=== PATIENT | male | born 1975 | race Caucasian/White ===

== ENCOUNTER 2023-10-02 18:04 | Emergency (ER) | payer OTHER, SELFPAY ==
[2023-10-02 18:09] VITALS: BP 159/86; PULSE 91; RESP 18; TEMP 37.2; O2SAT 98; BMI 48.7
--- NOTE | 2023-10-02 19:54 | ED_ITS ---
HPI - General Adult General Date Seen: 10/02/23 Chief complaint: Extremity Pain/Injury, Lower Stated complaint: swollen calf Time Seen by Provider: 10/02/23 19:53 History of Present Illness HPI narrative: Very pleasant 48-year-old male who is generally healthy. He has no long-term medical diagnoses other than being overweight who is referred to the ER today for by the urgent care for evaluation of right calf redness and swelling. He has noted that since Thursday morning when he woke up he has had a couple of small round nodules of mildly edematous red skin on his right posterior calf on the calf and Achilles. They are really not painful but are mildly tender when touched. No other symptoms. No diffuse new swelling in his calf or leg. No left-sided swelling. No fever or chills. No body aches. No myalgias. No fever. No known injury. No known bug bites. He has no history of DVT or PE. No family history of coagulopathy. Related Data Home Medications Medication Instructions Recorded Confirmed No Known Home Medications 10/02/23 10/02/23 Allergies Allergy/AdvReac Type Severity Reaction Status Date / Time No Known Drug Allergies Allergy Verified 10/02/23 17:39 PFSH PFSH Family History Father Pulmonary embolism Paternal Grandfather Pulmonary embolism Uncle Pulmonary embolism Social History Smoking Status: Never smoker How often do you have a drink containing alcohol: never AUDIT-C Alcohol total score: 0 Non-prescribed substance use: denies use Exam Narrative: Exam Narrative: Constitutional: Appears well-developed and well-nourished. Robust and heavy set. Alert. Conversant. Non toxic. HENT: Head: Atraumatic. Nose: Nose normal. Mouth/Throat: Oral mucosa is clear and moist. no trismus. Pharynx normal. Tonsils symmetric. No tonsillar enlargement, erythema, or exudate. Eyes: Conjunctivae normal. EOM normal. Pupils equal, round, and reactive to light. No scleral icterus. Neck: Normal range of motion. Neck supple. No tracheal deviation present. Cardiovascular: Normal rate, regular rhythm. No gallop. No friction rub. No murmur heard. Symmetric radial artery pulses Pulmonary/Chest: Effort normal. No stridor. No respiratory distress. No wheezes. No rales. No rhonchi . No tenderness. Musculoskeletal: RUE: Normal range of motion. No tenderness. No deformity LUE: Normal range of motion. No tenderness. No deformity RLE: Normal range of motion. No edema. There is erythema on the posterior calf with 2 round slightly raised indurated erythematous nodules that her roughly 3 or 4 cm in diameter. No fluctuance. No central umbilication. No raised borders to suggest ringworm. There is mild erythema of both of his shins but it is symmetric and he says that coloration of his skin is actually chronic on his legs. No other signs of hyper pigmentation. Strong DP and PT pulses. Normal toe wiggling. LLE: Normal range of motion. No edema. No tenderness. No deformity Lymph: No ascending lymphangitis Neurological: Alert and oriented to person, place, and time. Normal strength. CN II-VII intact. No sensory deficit. GCS eye subscore is 4. GCS verbal subscore is 5. GCS motor subscore is 6. Normal coordination Skin: Skin is warm and dry. No rash noted. No pallor. Normal capillary refill. Psychiatric: Normal mood. Normal affect. Const: Vital Signs, click to edit/add: Vital Signs - 24 hr 10/02/23 18:09 Temperature 99 F Pulse Rate [Pulse Oximeter] 91 Respiratory Rate 18 Blood Pressure [Ri t Upper Arm] 159/86 H Pulse Oximetry 98 Oxygen Delivery Me thod Room Air Course Vital Signs Vital signs: Initial Vital Signs Temperature 99 F 10/02/23 18:09 Temperature Source Temporal Artery Scan 10/02/23 18:09 Pulse Rate 91 10/02/23 18:09 Respiratory Rate 18 10/02/23 18:09 Blood Pressure 159/86 H 10/02/23 18:09 Blood Pressure Mean 110 H 10/02/23 18:09 Blood Pressure Position Sitting 10/02/23 18:09 Pulse Oximetry 98 10/02/23 18:09 Oxygen Delivery Method Room Air 10/02/23 18:09 Vital Signs Temperature 99 F 10/02/23 18:09 Pulse Rate 91 10/02/23 18:09 Respiratory Rate 18 10/02/23 18:09 Blood Pressure 159/86 H 10/02/23 18:09 Pulse Oximetry 98 10/02/23 18:09 Oxygen Delivery Method Room Air 10/02/23 18:09 Temperature 99 F 10/02/23 18:09 Pulse Rate 91 10/02/23 18:09 Respiratory Rate 18 10/02/23 18:09 Blood Pressure 159/86 H 10/02/23 18:09 Pulse Oximetry 98 10/02/23 18:09 Oxygen Delivery Method Room Air 10/02/23 18:09 Medical Decision Making MDM Narrative Medical decision making narrative: Very pleasant 48-year-old male referred to the ER by urgent care for evaluation of a red nodular swelling on his right posterior calf. Differential here would include DVT, cellulitis, abscess, necrotizing infection, among others. Overall he is clinically well appearing, afebrile, nontoxic, hemodynamically stable. He has normal oxygen, no shortness of breath or chest pain or other symptoms of PE. With localized area of redness I think he is overall low risk for DVT. We decided to go ahead with ultrasound to make sure there was no other small thrombus. Ultrasound does confirm a segment of superficial thrombophlebitis in the greater saphenous vein which correlates to the patient's symptoms. Management for this would be supportive with rest, elevation, warm packs, nonsteroidals. Discussed superficial thrombophlebitis with the patient. Precautions for return to the ER with spreading redness or signs of developing infection or increasing edema or signs that the clot might be progressing or developing into a DVT. Questions answered and the patient is very pleased with his ultrasound results and feels eager for discharge home. Imaging Data US Venous RLE: Attestation: I have reviewed the pertinent imaging results. Radiologist's impression: IMPRESSION: 1. No deep vein thrombus within the right lower extremity. 2. Superficial thrombophlebitis within the right greater saphenous vein below the level of the knee. Discharge Plan Discharge Clinical Impression: Superficial thrombophlebitis Patient Disposition: Home, Self-Care Condition: Stable Instructions: Superficial Thrombophlebitis (ED) Additional Instructions: Good news, your ultrasound shows that you have a small clot in the superficial vein of your leg. This is not a deep vein thrombosis and does not carry any ris k for going to her lungs. This typically will dissolve on its own. Try to keep her foot elevated when possible, use warm packs to help improve blood flow to the area and you can treat this with nonsteroidal anti-inflammatories such as ibuprofen 600 mg every 6 hours as needed. If you have increasing redness or swelling, fever or chills, or if you developed the swelling diffusely in your calf, please come back to the ER right away to be recheck Prescriptions: No Action No Known Home Medications Follow Up/Referrals: Provider,Not a Local [Primary Care Provider] - Stand Alone Forms: [employer] Info Instructions
--- NOTE | 2023-10-02 20:05 | US_ITS ---
Patient: VIPUL MADRID Facility:?[facility] Patient ID:?[id number] Site Patient ID:?[id number]. Site :?[id number] Study:?US-Extremity Right -10/02/2023 9:22:21 PM Ordering Physician:LUISA Final Report: INDICATION: Right lower extremity swelling. TECHNIQUE: Right lower extremity Doppler venous ultrasound examination was performed. Grayscale and color Doppler images were obtained. COMPARISON: None. FINDINGS: RIGHT LOWER EXTREMITY: Common femoral vein: Fully compressible. No deep vein thrombus. Normal flow and response to augmentation on color Doppler imaging. Superficial femoral vein: Fully compressible. No deep vein thrombus. Normal flow on color Doppler imaging. Deep femoral vein: No deep vein thrombus Popliteal femoral vein: Fully compressible. No deep vein thrombus. Normal flow on color Doppler imaging. Lower calf: The visualized posterior tibial and peroneal veins are fully compressible. No deep vein thrombus. Normal flow and response to augmentation on color Doppler imaging. Superficial veins: There is a superficial thrombus within the greater saphenous vein below the level of the knee. Soft tissues: No popliteal fossa fluid collection identified. LEFT LOWER EXTREMITY: Common femoral vein: Fully compressible. No deep vein thrombus. Normal flow and response to augmentation on color Doppler imaging. IMPRESSION: 1. No deep vein thrombus within the right lower extremity. 2. Superficial thrombophlebitis within the right greater saphenous vein below the level of the knee. Dictated by Alberto Larson MD @ 10/02/2023 9:51:54 PM Signed by:?Alberto Larson MD @10/02/2023 9:51:54 PM (Electronic Signature)
== END 2023-10-02 22:13 | disposition home or self-care (01) ==
PROVIDERS: Emergency Provider Emergency Medicine
DX: I80.01 Phlebitis and thrombophlebitis of superficial vessels of right lower extremity (principal)
CPT/HCPCS: 93971; 99282; 99283

== ENCOUNTER 2024-06-04 13:04 | Observation (INO) | payer OTHER, SELFPAY ==
[2024-06-04] VITALS (30 sets, daily range): BP systolic 92–157; BP diastolic 65–116; PULSE 93–177; RESP 18–24; TEMP 36.9; O2SAT 76–99; BMI 48.1
--- NOTE | 2024-06-04 13:21 | ED_ITS ---
HPI - SOB/Dyspnea General Time Seen by Provider: 13:22 Date Seen: 06/04/24 Chief Complaint: Shortness of Breath/Dyspnea Stated Complaint: shortness of breathe, possible blood clot Time Seen by Provider: 06/04/24 13:21 Source: patient and old records reviewed Mode of arrival: ambulatory Limitations: no limitations History of Present Illness HPI Narrative: 49-year-old male who presents today with shortness of breath. Patient notes cold symptoms for the last week, including cough, nasal congestion, dyspnea with exertion. He notes a fever about a week ago when symptoms started but that is resolved. Denies chest pain, nausea, vomiting, diarrhea. Does feel like he has had some cramping in the left calf as well. Not currently taking anything for this, no history heart or lung disease. Related Data Home Medications ?Medication ?Instructions ?Recorded ?Confirmed multivitamin 1 tab PO QAM 06/04/24 06/04/24 Allergies Allergy/AdvReac Type Severity Reaction Status Date / Time No Known Drug Allergies Allergy Verified 06/04/24 13:55 PFSH PFSH Family History Father Pulmonary embolism Paternal Grandfather Pulmonary embolism Uncle Pulmonary embolism Social History Smoking Status: Never smoker How often do you have a drink containing alcohol: never AUDIT-C Alcohol total score: 0 Non-prescribed substance use: denies use Exam Narrative: Exam Narrative: General: Well-developed and well-nourished, no acute distress Head: Atraumatic and normocephalic Eyes: Pupils are equal reactive, extraocular motions intact, conjunctiva clear ENT: External nose and ears are normal, posterior pharynx without erythema or exudate Neck: No midline cervical tenderness, full spontaneous range of motion the neck, trachea midline, no adenopathy Heart: Regular rate and rhythm no murmurs or thrills Lungs: Clear to auscultation bilaterally without wheezes or crackles Abdomen: Soft, nontender, nondistended with active bowel sounds Musculoskeletal: No tenderness, deformity, or edema Neurologic: Awake, alert, and oriented x3, no gross focal neurologic deficits, cranial nerves intact as tested Psych: Mood and affect are appropriate Skin: No rashes Const: Vital Signs, click to edit/add: Vital Signs - 24 hr 06/04/24 13:12 06/04/24 14:41 06/04/24 15:01 Temperature 98.4 F Pulse Rate [Pulse Oximeter] 97 112 H 104 H Respiratory Rate 24 20 18 Blood Pressure [Ri ght Upper Arm] 157/92 H Pulse Oximetry 91 89 93 Oxygen Delivery Me thod Room Air Room Air Room Air 06/04/24 15:24 Temperature Pulse Rate [Pulse Oximeter] 107 H Respiratory Rate Blood Pressure [Ri ght Upper Arm] Pulse Oximetry 91 Oxygen Delivery Me thod Room Air Course Course ED Course: Patient seen examined, reviewed urgent care visit from earlier today which was for this same problem. At that time noted to be tachycardic with oxygen saturation 93%. Patient is not tachycardic on initial arrival to the emergency department. Patient with all about a week of cough, runny nose, and dyspnea on exertion. No chest pain, no fevers. On exam here, awake alert, no respiratory distress, trace crackles in the left lung field. Suspect possible viral process, however cannot exclude intrathoracic process such as pneumonia, heart failure, also possible of pulmonary embolism given family history in symptoms. Cannot PERC out, CT PE study will be performed due to high risk for pulmonary embolism also need to evaluate for other causes of cough. Patient is complaining of some calf cramping in the left leg, ultrasound ordered. Reevaluation(s) Time of Reevaluation #1: 14:26 Reevaluation #1: Labs and panel interpreted by me with slightly elevated troponin, patient has no chest pain in this likely represents strain, BNP elevated at 2580, in conjunction with slightly elevated troponin, concern that this could represent heart strep brain from pulmonary embolism. Basic panel is reassuring, CBC with mild leukocytosis. CT PE study and panel interpreted by me with poor bolus timing but no large central pulmonary embolism seen. Time of Reevaluation #2: 14:52 Reevaluation #2: Reviewed radiology interpretation CT scan with no large central pulmonary embolism no evidence of right heart strain, mild peribronchial wall thickening, there is a 1.2 cm semi solid ground-glass nodule which will need outpatient follow-up. Time of Reevaluation #3: 15:39 Reevaluation #3: Left lower extremity ultrasound is negative for acute findings, no DVT. Patient is stable for discharge. Remains low but tachycardic but otherwise vitally stable. Vital Signs Vital signs: Initial Vital Signs Temperature 98.4 F 06/04/24 13:12 Temperature Source Temporal Artery Scan 06/04/24 13:12 Pulse Rate 97 06/04/24 13:12 Respiratory Rate 24 06/04/24 13:12 Blood Pressure 157/92 H 06/04/24 13:12 Blood Pressure Mean 113 H 06/04/24 13:12 Pulse Oximetry 91 06/04/24 13:12 Oxygen Delivery Method Room Air 06/04/24 13:12 Vital Signs Temperature 98.4 F 06/04/24 13:12 Pulse Rate 97 06/04/24 13:12 Respiratory Rate 24 06/04/24 13:12 Blood Pressure 157/92 H 06/04/24 13:12 Pulse Oximetry 91 06/04/24 13:12 Oxygen Delivery Method Room Air 06/04/24 13:12 Temperature 98.4 F 06/04/24 13:12 Pulse Rate 107 H 06/04/24 15:24 Respiratory Rate 18 06/04/24 15:01 Blood Pressure 157/92 H 06/04/24 13:12 Pulse Oximetry 91 06/04/24 15:24 Oxygen Delivery Method Room Air 06/04/24 15:24 Medications Administered Medications: Discontinued Medications Generic Name Dose Route Start Last Admin Trade Name Darcy PRN Reason Stop Dose Admin Albuterol/Ipratropium 1 neb 06/04/24 14:54 06/04/24 15:02 Iprat-Albut 0.5-2.5 Mg/3 Ml Neb IH 06/04/24 14:55 1 neb ONCE ONE Administration Prednisone 60 mg 06/04/24 14:54 06/04/24 15:02 Prednisone 20 Mg Tablet PO 06/04/24 14:55 60 mg ONCE ONE Administration MDM - SOB/Dyspnea Lab Data Labs: Lab Results 06/04/24 06/04/24 Range/Units 13:40 13:42 WBC 12.66 H (4.50-11.00) K/uL RBC 5.01 (4.30-5.90) m/uL Hgb 14.9 (13.5-17.5) gm/dL Hct 44.5 (37.0-53.0) % MCV 89 (80-100) fL MCH 30 (26-34) pg MCHC 34 (32-36) gm/dL RDW Coeff of Andie 13.4 (11.5-15.5) % Plt Count 163 (140-440) K/uL Neut % (Auto) 78.5 H (42.0-72.0) % Lymph % (Auto) 11.1 L (20-44) % [place] % (Auto) 8.2 (0.0-11.0) % Eos % (Auto) 1.4 (0.0-7.0) % Baso % (Auto) 0.6 (0.0-3.0) % Neut # (Auto) 9.90 H (1.7-7.0) K/uL Lymph # (Auto) 1.40 (0.90-2.90) K/uL [place] # (Auto) 1.00 H (0.00-0.90) K/UL Eos # (Auto) 0.20 (0.00-0.50) K/uL Baso # (Auto) 0.10 (0.00-0.30) K/uL Abs Immat Gran (auto) 0.00 (0.00-0.30) K/uL Imm/Tot Granulo (auto) 0.2 % INR 1.00 (0.91-1.10) Sodium 139 (135-149) mmol/L Potassium 4.0 (3.6-5.1) mmol/L Chloride 109 (96-114) mmol/L Carbon Dioxide 24 (20-32) mmol/L Anion Gap 6 L (7-15) mEq/L BUN 17 (7-30) mg/dL Creatinine 1.1 (0.5-1.5) mg/dL Estimated Creat Clear 94.96 Estimated GFR 81 ml/min Glucose 142 H (60-115) mg/dL Calcium 9.7 (8.4-10.6) mg/dL Magnesium 2.3 (1.5-2.6) mg/dL NT-Pro-B Natriuret Pep 2580 pg/mL SARS-CoV-2 (PCR) Negative SARS-CoV-2 (Negative) Influenza Type A (PCR) Negative PCR FLU A (Negative) Influenza Type B (PCR) Negative PCR FLU B (Negative) RSV (PCR) Negative PCR RSV (Negative) POC Troponin I 0.10 H (0.01-0.04) ng/ml Discharge Plan Discharge Clinical Impression: Acute bronchitis, Upper respiratory infection, viral, Pulmonary nodule Patient Disposition: Home, Self-Care Condition: Stable Instructions: Acute Bronchitis (ED), Viral Syndrome (ED), Pulmonary Nodules (ED) Additional Instructions: Use inhaler intake steroid as prescribed Follow-up with primary care for further testing of the nodule seen on your CT scan. Activity Level: Activity as Tolerated Discharge Diet: Regular Prescriptions: No Action multivitamin Tablet 1 tab PO QAM Follow Up/Referrals: Provider,Not a Local [Primary Care Provider] - Stand Alone Forms: [employer] Info Instructions
--- NOTE | 2024-06-04 13:31 | CRLHL7_ITS ---
For Patients: As a result of the 21st Century Cures Act, medical imaging exams and procedure reports are released immediately into your electronic medical record. You may view this report before your referring provider. If you have questions, please contact your health care provider. INDICATION: Dyspnea. Chest pain. TECHNIQUE: Multiplanar CT pulmonary angiogram was performed after the administration of 95 mL of Isovue 370 intravenous contrast. COMPARISON: None. FINDINGS: Lower neck: The visualized thyroid is unremarkable. Cardiovascular: Contrast opacification of the pulmonary arterial tree is suboptimal limiting evaluation for pulmonary emboli. Heart size is normal. Thoracic aorta is normal in caliber. Enlarged main pulmonary artery measuring up to 4.7 cm. No significant atherosclerotic calcifications of the aortic arch. No significant coronary arterial calcifications. No large central pulmonary embolus. Mediastinum and lymph nodes: Unremarkable. No pathologic mediastinal or hilar lymphadenopathy by size criteria. Lungs: No focal consolidation. Subsolid ground-glass nodule measuring 1.2 cm with a 1.1 cm solid component (5:35). Linear bandlike opacification of the lung bases bilaterally, likely subsegmental atelectasis and/or scarring. Airways: Trachea remains patent and midline. Mild diffuse peribronchial wall thickening. Pleura: No pleural effusions or pneumothorax Chest wall: Unremarkable. Prominent axillary lymph nodes that do not meet size criteria for lymphadenopathy. Bones: No acute osseous abnormalities. Mild degenerative changes of the thoracic spine. No suspicious lytic or blastic lesions. Upper abdomen: No acute findings in the visualized upper abdomen. No reflux of contrast material into the IVC. IMPRESSION: 1. Suboptimal opacification of the pulmonary arterial tree limits evaluation for pulmonary emboli. No large central pulmonary embolus or CT evidence of right heart strain. 2. 1.2 cm subsolid ground-glass nodule with 1.1 cm solid component, raising concern for an underlying neoplasm/adenocarcinoma spectrum type lesion. No pathologic lymphadenopathy. Further evaluation should be obtained with PET-CT or histologic tissue analysis. Please note that all CT scans at this facility use dose modulation, iterative reconstruction, and/or weight-based dosing when appropriate to reduce radiation dose to as low as reasonably achievable. Dictated by Alberto Larson MD @ 06/04/2024 2:47:28 PM (Electronically Signed)
--- NOTE | 2024-06-04 13:31 | CRLHL7_ITS ---
For Patients: As a result of the Century Cures Act, medical imaging exams and procedure reports are released immediately into your electronic medical record. You may view this report before your referring provider. If you have questions, please contact your health care provider. INDICATION: Left leg pain and swelling. Shortness of breath. TECHNIQUE: Ultrasound venous duplex lower left extremity. Compression venous exam was performed using ricketts-scale, color Doppler, and spectral Doppler imaging. COMPARISON: None. FINDINGS: Left lower extremity: Common femoral vein: Patent and compressible. Greater saphenous vein: Patent. Deep femoral vein: Patent. Femoral vein: Patent and compressible. Popliteal vein: Patent and compressible. Posterior tibial vein: Patent and compressible. Peroneal vein: Patent and compressible. Contralateral right common femoral vein: Patent and compressible. IMPRESSION: No evidence of acute deep venous thrombosis in the left lower extremity. Dictated by Lorraine Spears MD @ 06/04/2024 3:38:47 PM (Electronically Signed)
[2024-06-04 13:50] LABS: Basophils Percent Auto 0.6 % (0.0-3.0); Eosinophils Percent Auto 1.4 % (0.0-7.0); Hematocrit 44.5 % (37.0-53.0); Hemoglobin* 14.9 gm/dL (13.5-17.5); Immature Granulocytes Pct Auto 0.2 %; Lymphocytes Percent Auto 11.1 % (20-44); Mean Corpuscular HGB Conc 34 gm/dL (32-36); Mean Corpuscular Hemoglobin 30 pg (26-34); Mean Corpuscular Volume 89 fL (80-100); Monocytes Percent Auto 8.2 % (0.0-11.0); Neutrophils Percent Auto 78.5 % (42.0-72.0); Platelet Count* 163 K/uL (140-440); RDW Coefficient of Variation % 13.4 % (11.5-15.5); Red Blood Count 5.01 m/uL (4.30-5.90); White Blood Count* 12.66 K/uL (4.50-11.00)
[2024-06-04 14:05] LABS: Chloride* 109 mmol/L (96-114); Sodium* 139 mmol/L (135-149)
[2024-06-04 14:08] LABS: Anion Gap 6 mEq/L (7-15); Blood Urea Nitrogen* 17 mg/dL (7-30); Calcium* 9.7 mg/dL (8.4-10.6); Carbon Dioxide* 24 mmol/L (20-32); Creatinine* 1.1 mg/dL (0.5-1.5); Est. Creatinine Clearance* 94.96; Estimated Glomerular Filt Rate 81 ml/min; Glucose* 142 mg/dL (60-115)
[2024-06-04 14:09] LABS: Magnesium* 2.3 mg/dL (1.5-2.6)
[2024-06-04 14:19] LABS: NT Pro B Type NatriureticPept* 2580 pg/mL; Slide Review Reflex No
[2024-06-04 14:37] LABS: PCR FLU A Negative PCR FLU A (Negative); PCR FLU B Negative PCR FLU B (Negative); PCR RSV Negative PCR RSV (Negative); SARS PCR* Negative SARS-CoV-2 (Negative)
[2024-06-04] MEDS: predniSONE 20 MG TABLET 60 MG PO (15:02)
[2024-06-04] MEDS: IPRAT-ALBUT 0.5-2.5 MG/3 ML NEB 1 NEB IH (15:02)
[2024-06-04 15:27] LABS: Prothrombin Time 13.8 Seconds
--- NOTE | 2024-06-04 16:20 | ED_ITS ---
HPI - General Adult General Chief complaint: Shortness of Breath/Dyspnea Stated complaint: shortness of breathe, possible blood clot Time Seen by Provider: 06/04/24 13:21 Source: patient and old records reviewed Mode of arrival: ambulatory Limitations: no limitations History of Present Illness HPI narrative: This patient was discharged from a visit here at the emergency department and on his way out he grew short of breath and became lightheaded and actually had loss of consciousness so he was brought back in here. He denies having any chest pain. He states that was all about becoming short of breath which she has had some episodes like this recently. He was cared for by the physician that finished his shift and I did review those notes. He did have CT imaging of his chest for pulmonary embolism trial. This returned negative. He also had ultrasound of his lower extremities with negative results. His troponin did return at 0.1 but the patient all along has been denying any chest pain. This was thought to be some demand ischemia. He does not have significant pedal edema. He is very obese with a BMI of 48 and weighing 175 kg. Related Data Home Medications ?Medication ?Instructions ?Recorded ?Confirmed multivitamin 1 tab PO QAM 06/04/24 06/04/24 Allergies Allergy/AdvReac Type Severity Reaction Status Date / Time No Known Drug Allergies Allergy Verified 06/04/24 13:55 Review of Systems Status of ROS: Reports: 10 or more systems reviewed and unremarkable except as noted in History and below Narrative: Constitutional: No fevers, no weight gain or loss. Eyes: No discharge. No vision changes. HENT: No congestion, no sore throat, no ear pain. Cardiovascular: No chest pain, no palpitations. Respiratory: Shortness of breath with an episode of syncope spurred on by shor tness of breath. Gastrointestinal: No abdominal pain, no vomiting, no diarrhea. Genitourinary: No dysuria, no hematuria. Musculoskeletal: Normal range of motion. Skin: No rashes, no pruritis. Neurological: No dizziness, weakness, sensory change, speech change. Endo/Heme/Allergies: No bruising or bleeding. No polydipsia. Pysch: no suicidality, no anxiety, no insomnia. All other systems reviewed and are negative. [facility] Family History Father Pulmonary embolism Paternal Grandfather Pulmonary embolism Uncle Pulmonary embolism Social History Smoking Status: Never smoker How often do you have a drink containing alcohol: never AUDIT-C Alcohol total score: 0 Non-prescribed substance use: denies use Exam Narrative: Exam Narrative: Constitutional: Well-developed, well-nourished. Diaphoretic. HEENT: Normocephalic, atraumatic. Neck: Normal range of motion. Nontender. Supple. Heart: Regular. No murmurs. Tachycardia. Intact distal pulses. Lungs: Clear to auscultation. No chest discomfort. No wheezes, rhonchi, or rales. Abdomen: Normal bowel sounds. Nontender. No rebound tenderness. Genitalia: Deferred. Back: No midline tenderness. Normal range of motion. Extremities: Normal range of motion. No injury. Skin: Intact. No rash. Warm. No erythema or pallor. Neurologic: No altered sensation. No weakness. Alert and oriented. Psychiatric: No suicidality. No anxiety or depression. No insomnia. Nursing notes and vitals signs are reviewed. Const: Vital Signs, click to edit/add: Vital Signs - 24 hr 06/04/24 13:12 06/04/24 14:41 06/04/24 15:01 Temperature 98.4 F Pulse Rate [Pulse Oximeter] 97 112 H 104 H Respiratory Rate 24 20 18 Blood Pressure [Ri ght Upper Arm] 157/92 H Pulse Oximetry 91 89 93 Oxygen Delivery Me thod Room Air Room Air Room Air Oxygen Flow Rate 06/04/24 15:24 06/04/24 16:40 Temperature Pulse Rate [Pulse Oximeter] 107 H Respiratory Rate Blood Pressure [Ri ght Upper Arm] Pulse Oximetry 91 Oxygen Delivery Me thod Room Air OxyMask Oxygen Flow Rate 6 Course Vital Signs Vital signs: Initial Vital Signs Respiratory Depth Normal 06/04/24 13:11 Vital Signs Temperature 98.4 F 06/04/24 13:12 Pulse Rate 97 06/04/24 13:12 Respiratory Rate 24 06/04/24 13:12 Blood Pressure 157/92 H 06/04/24 13:12 Pulse Oximetry 91 06/04/24 13:12 Oxygen Delivery Method Room Air 06/04/24 13:12 Temperature 98.4 F 06/04/24 13:12 Pulse Rate 107 H 06/04/24 15:24 Respiratory Rate 18 06/04/24 15:01 Blood Pressure 157/92 H 06/04/24 13:12 Pulse Oximetry 91 06/04/24 15:24 Oxygen Delivery Method OxyMask 06/04/24 16:40 Oxygen Flow Rate 6 06/04/24 16:40 Medications Administered Medications: Discontinued Medications Generic Name Dose Route Start Last Admin Trade Name Darcy PRN Reason Stop Dose Admin Albuterol/Ipratropium 1 neb 06/04/24 14:54 06/04/24 15:02 Iprat-Albut 0.5-2.5 Mg/3 Ml Neb IH 06/04/24 14:55 1 neb ONCE ONE Administration Prednisone 60 mg 06/04/24 14:54 06/04/24 15:02 Prednisone 20 Mg Tablet PO 06/04/24 14:55 60 mg ONCE ONE Administration Medical Decision Making MDM Narrative Medical decision making narrative: This patient returns after a syncopal event upon discharge due to shortness of breath. He feels back to normal when laying still but is having tachycardia at rest. His heart rate is staying around 115 beats per minute. He is getting sufficient oximetry numbers. A repeat troponin is obtained and does not show a significant difference at 0.12. I did speak with the hospitalist on-call, Dr. Gonsalez, who agrees to his admission and will come to meet with him and make arrangements. A venous blood gas is obtained also and returns with normal findings. Lab Data Labs: Lab Results 06/04/24 06/04/24 06/04/24 Range/Units 13:40 13:42 16:30 WBC 12.66 H (4.50-11.00) K/uL RBC 5.01 (4.30-5.90) m/uL Hgb 14.9 (13.5-17.5) gm/dL Hct 44.5 (37.0-53.0) % MCV 89 (80-100) fL MCH 30 (26-34) pg MCHC 34 (32-36) gm/dL RDW Coeff of Andie 13.4 (11.5-15.5) % Plt Count 163 (140-440) K/uL Neut % (Auto) 78.5 H (42.0-72.0) % Lymph % (Auto) 11.1 L (20-44) % [place] % (Auto) 8.2 (0.0-11.0) % Eos % (Auto) 1.4 (0.0-7.0) % Baso % (Auto) 0.6 (0.0-3.0) % Neut # (Auto) 9.90 H (1.7-7.0) K/uL Lymph # (Auto) 1.40 (0.90-2.90) K/uL [place] # (Auto) 1.00 H (0.00-0.90) K/UL Eos # (Auto) 0.20 (0.00-0.50) K/uL Baso # (Auto) 0.10 (0.00-0.30) K/uL Abs Immat Gran (auto) 0.00 (0.00-0.30) K/uL Imm/Tot Granulo (auto) 0.2 % INR 1.00 (0.91-1.10) VBG pH (7.32-7.43) VBG pCO2 (40-50) mmHG VBG pO2 (25-47) mmHG VBG HCO3 (21-28) mmol/L Sodium 139 (135-149) mmol/L Potassium 4.0 (3.6-5.1) mmol/L Chloride 109 (96-114) mmol/L Carbon Dioxide 24 (20-32) mmol/L Anion Gap 6 L (7-15) mEq/L BUN 17 (7-30) mg/dL Creatinine 1.1 (0.5-1.5) mg/dL Estimated Creat Clear 94.96 Estimated GFR 81 ml/min Glucose 142 H (60-115) mg/dL Calcium 9.7 (8.4-10.6) mg/dL Magnesium 2.3 (1.5-2.6) mg/dL NT-Pro-B Natriuret Pep 2580 pg/mL SARS-CoV-2 (PCR) Negative SARS-CoV-2 (Negative) Influenza Type A (PCR) Negative PCR FLU A (Negative) Influenza Type B (PCR) Negative PCR FLU B (Negative) RSV (PCR) Negative PCR RSV (Negative) POC Troponin I 0.10 H 0.12 H (0.01-0.04) ng/ml 06/04/24 Range/Units 17:27 WBC (4.50-11.00) K/uL RBC (4.30-5.90) m/uL Hgb (13.5-17.5) gm/dL Hct (37.0-53.0) % MCV (80-100) fL MCH (26-34) pg MCHC (32-36) gm/dL RDW Coeff of Andie (11.5-15.5) % Plt Count (140-440) K/uL Neut % (Auto) (42.0-72.0) % Lymph % (Auto) (20-44) % [place] % (Auto) (0.0-11.0) % Eos % (Auto) (0.0-7.0) % Baso % (Auto) (0.0-3.0) % Neut # (Auto) (1.7-7.0) K/uL Lymph # (Auto) (0.90-2.90) K/uL [place] # (Auto) (0.00-0.90) K/UL Eos # (Auto) (0.00-0.50) K/uL Baso # (Auto) (0.00-0.30) K/uL Abs Immat Gran (auto) (0.00-0.30) K/uL Imm/Tot Granulo (auto) % INR (0.91-1.10) VBG pH 7.373 (7.32-7.43) VBG pCO2 41 (40-50) mmHG VBG pO2 < 30.1 (25-47) mmHG VBG HCO3 24 (21-28) mmol/L Sodium (135-149) mmol/L Potassium (3.6-5.1) mmol/L Chloride (96-114) mmol/L Carbon Dioxide (20-32) mmol/L Anion Gap (7-15) mEq/L BUN (7-30) mg/dL Creatinine (0.5-1.5) mg/dL Estimated Creat Clear Estimated GFR ml/min Glucose (60-115) mg/dL Calcium (8.4-10.6) mg/dL Magnesium (1.5-2.6) mg/dL NT-Pro-B Natriuret Pep pg/mL SARS-CoV-2 (PCR) (Negative) Influenza Type A (PCR) (Negative) Influenza Type B (PCR) (Negative) RSV (PCR) (Negative) POC Troponin I (0.01-0.04) ng/ml ECG Data Attestation: I personally reviewed and interpreted this ECG as follows: Interpretation: Sinus tachycardia. Rate is 112 beats per minute. T-wave inversions in the anterior lateral and inferior leads. No ST depression or elevation. Discharge Plan Discharge Clinical Impression: Acute bronchitis, Upper respiratory infection, viral, Pulmonary nodule Patient Disposition: Admitted As Inpatient Condition: Stable Instructions: Acute Bronchitis (ED), Viral Syndrome (ED), Pulmonary Nodules (ED) Additional Instructions: Use inhaler intake steroid as prescribed Follow-up with primary care for further testing of the nodule seen on your CT scan. Activity Level: Activity as Tolerated Discharge Diet: Regular Prescriptions: No Action multivitamin Tablet 1 tab PO QAM Follow Up/Referrals: Provider,Not a Local [Primary Care Provider] - Stand Alone Forms: [facility] Info Instructions
--- NOTE | 2024-06-04 16:30 | ED.NURSE ---
Pt was discharged from ER, did ambulate to hallway and then sat down feeling SOB. Partner Marketing Manager heard Pt in lobby and found Pt diaphoretic, pale and unresponsive in chair. Pt was able to wake and move to wheel chair. NRB started and Pt moved back to ER using account that had not yet been completed. Pt had earlier self ambulated to imaging department without episode.
[2024-06-04 16:49] LABS: Troponin, Point-of-Care* 0.12 ng/ml (0.01-0.04)
[2024-06-04 17:28] LABS: HCO3 VBG 24 mmol/L (21-28); PCO2 VBG 41 mmHG (40-50); PO2 VBG < 30.1 mmHG (25-47); pH VBG 7.373 (7.32-7.43)
--- NOTE | 2024-06-04 18:45 | ED.NURSE ---
Pt was in process of filling [employer] Rx when Pt was brought back into ER. [employer] was contacted and did reverse and cancel the transaction. Med Surg notified that Pt will need new Rx at time of discharge.
[2024-06-04] MEDS: EPINEPHrine 0.1 MG/ML SYRINGE 1 MG IVP ×5 (18:57→20:11)
--- NOTE | 2024-06-04 19:22 | P.DN_ITS ---
Pronouncement Note Date and Time of Date of : 06/04/24 Time of : 19:12 PCOD Preliminary cause of : Cardiac arrest Summary Additional details: 49 year old man presented with complaint of shortness of breath. 9 day history of increased dyspnea with exertion. 5 days ago had a severe coughing paroxysm with transient near syncope and has had worsening dyspnea since. Denies edema. Does not obtain medical care routinely. Acknowledges long standing snoring with sleeping, apneic episodes worrisome for obstructive sleep apnea. He has never had this assessed. Strong family history of VTE, with father, paternal grandfather, and paternal uncle all having of complications from pulmonary embolism. Evaluated in the [place] urgent care today, then referred to the [facility] ED for further assessment and management. Initial assessment in the ED was rather extensive and no specific cause of his symptoms was specifically determined. Based upon his positive response to DuoNeb, it was presumed that he possibly was suffering from a URI with reactive airways. Upon discharge from the ED he had a near syncope episode followed by a syncopal episode before even walking out of the hospital. He was brought back to the ED. A determination was made to admit the patient to the hospital for additional observation and continue to assess and treat as warranted. When he arrived to the medical surgical floor he had another syncopal episode after walking back from the bathroom. Shortly thereafter while sitting in his hospital bed he became buck in color and unresponsive. We called a CODE-BLUE and initiated CPR immediately. MedSurg and ED staff were present to institute ACLS. He initially had PEA. In a short period of time he was in an agonal rhythm. CPR compressions could be easily felt in the right femoral artery. When CPR was stopped, to change compressors, no pulse could be felt. Additionally, bedside POC ultrasound demonstrated no cardiac activity when compression stopped. I spoke with his , Sena, during and after the CODE. After 20 minutes of CPR without any return of electrical or mechanical function, the CODE was stopped and the patient was pronounced at 1912. Additional Data Confirmation of : no pulse, no respirations, no heart sounds and pupils fixed and dilated Family: contacted Additional persons at bedside: other (physicians (myself included), nurses, respiratory therapist) Attending/PCP notified?: Yes Attending physician: Maxim Gonsalez MD Date Seen: 06/04/24 Was code activated?: Yes Autopsy requested?: No mail distribution scheme examiner notified?: Yes Organ bank notified?: Yes Advance directives: No
--- NOTE | 2024-06-04 19:28 | PC.NURSE ---
Nursing Note: 183 Pt arrived to unit on w/c with oxymask running at 4L. Pt tachpenic and clammy. Stated he could not stand for a weight so bed scale prepped. Pt hastily trying to get up to use toilet. Extension tubing attached and pt walked SB to bathroom to void. While washing hands, pt stopped and walked towards bed saying I need the fucking bed, im sorry. Pt sat down and residential mortgage underwriter noted increase clamminess and change in color. Pt eyes rolled back and pt began leaning forward. Public Health Internship supported pt and helped lower to bed laying supine. Public Health Internship called out for assistance and while staff arriving to room, pt became alert but could not recall what just happened. Assisted to sitting at edge of bed, VS monitoring put in place for Q5min. While attempting to head field hockey coach pt with effective breathing, pt started passing out again. Public Health Internship supported pt upright until pt became alert again shortly after. Assisted pt semi fowlers into bed. BP low at 98/79, HR 142, spO2 at 88%. Supplemental O2 increased to 9L via oxy mask. . Public Health Internship attempted to lower head of bed but pt unable to tolerate. Became panicked and demanded to sit up. Head of bed slighting elevated until comfortable. While trying to get cardiac monitoring in place pt became increasingly panicked and unable to catch breath. Once EKG printed, put pt in high fowlers and assisted in leaning forward to tripod. and residential mortgage underwriter coaching pt to breathe through the nose and out the mouth but pt unable to do so. Breathing seemed to reach a point that pt was able to calmly take a breath but when residential mortgage underwriter observed pt, eyes seemed to become fixed, staring off. Pt became unresponsive to voice and then tensed up, color of lips became pale and no carotid pulse felt. Code called, bed transitioned to CPR mode and CPR started by residential mortgage underwriter. During code, residential mortgage underwriter performed three rounds of CPR alternating with staff. IV to R AC started by residential mortgage underwriter.
--- NOTE | 2024-06-04 19:44 | RESP.RT ---
Patient seen in ED as Patient SATs dropped with any activity, but quickly recovered with rest and 8L Oxymask. Patient was transferred to [facility] CCU[facility]. Patient got up to use the bathroom and quickly desaturated and became very diaphoretic. Patient placed on 15L Oxymask. SATs increased to 95%, but RR increased to 40 and patient had very high anxiety. While BiPAP was getting set up, patient lost consciousness and seized before going into PEA. CPR was started and patient was able to be ventilated with BVM. CPR was continued for 20min with no ability to regain a HR.
--- NOTE | 2024-06-04 20:00 | P.IMHP_ITS ---
Hospitalist- H&P: HPI History of Present Illness Date Seen: 06/04/24 Chief complaint: shortness of breathe, possible blood clot Narrative: Wilmar Lyn is a 49 year old man assist at the [facility] today for dyspnea and cough with exertion. He was referred to the emergency [facility] after initial assessment in Urgent Care and then presented to the [facility] Emergency Department. He tells me he just came back from a deer hunting excursion on 05/22/2024. He did well during that time. He had no dyspnea with exertion. Return home and was doing well until about 9 days ago when he noticed a sense of increased dyspnea with exertion. He brushed that off. Five days ago, on a Thursday, he states he had a coughing paroxysm and felt like he could not catch his breath and was near syncopal. After that coughing paroxysm resolved, he has had increased dyspnea with exertion since. Throughout this he denies fevers, rigors, diaphoresis. Has had a nonproductive cough particularly with exertion. [place] like he had phlegm in his throat which he could not clear. He wondered if maybe he had chest cold as he called it. Denies dyspnea at rest. The dyspnea with exertion was becoming so problematic that he decided to come in for assessment today. Review of Systems Status of ROS: Reports: 10 or more systems reviewed and unremarkable except as noted in History and below Narrative: He tells me he does not obtain routine medical care at all. He does not have regular physician whom he sees. Does not have a primary care physician. In October of 2023 he had a superficial venous thrombus in his right popliteal fossa treated with nonsteroidal anti-inflammatory medications and resolved. This was found when he felt these uncomfortable nodules in his right popliteal fossa and an ultrasound demonstrated the superficial venous thrombus. There was no deep venous thrombus. Longstanding snoring when he sleeps and apneic episodes. He has never sought medical attention for this. Denies any recent chest, neck, shoulder, arm heaviness, tightness, pressure, or pain. Up until today he has had no syncopal episodes. Denies nausea or v omiting. Denies palpitations. Again denies fevers, rigors, diaphoresis. Denies edema. Longstanding varicose veins bilateral lower extremities. Does not take any measures to address this. Denies asthma or reactive airways in the past. [facility] Medical History Morbid obesity ?E66.01 - Morbid (severe) obesity due to excess calories (ICD-10) Acute superficial venous thrombosis of right lower extremity ?I82.811 - Embolism and thrombosis of superficial veins of right lower extremity (ICD-10) Family History Father Pulmonary embolism Paternal Grandfather Pulmonary embolism Uncle Pulmonary embolism Social History Smoking Status: Never smoker How often do you have a drink containing alcohol: never AUDIT-C Alcohol total score: 0 Non-prescribed substance use: denies use Meds Home Medications and Allergies Home Medications ?Medication ?Instructions ?Recorded ?Confirmed ?Type multivitamin 1 tab PO QAM 06/04/24 06/04/24 History Allergies Allergy/AdvReac Type Severity Reaction Status Date / Time No Known Drug Allergies Allergy Verified 06/04/24 13:55 Exam Narrative: Exam Narrative: I initially evaluated the patient in the emergency department. Subsequently I examined the patient in his hospital room after he arrived on the medical surgical nurses station. When I 1st assessed him he was sitting on the edge of his bed appeared comfortable and in no acute distress. Vision and hearing are adequate. Talkative and cooperative. Friendly. Alert, oriented x4. Morbidly obese. External auditory canals are clear. Midline nasal septum. Dentition in fair repair. Mallampati class 4 airway. No icterus. Conjugate gaze. Neck is full. Neck is supple. Midline trachea. Lungs are clear to auscultation. There is no wheezing, rhonchi, or rales. Chest wall excursions are full. No CVA tenderness to thumping. Heart tones with regular rhythm, normal S1-S2. Tachycardia with heart rate of 110. I do not hear any murmur, gallop, or rub. I am not able to palpate his PMI. Telemetry demonstrates sinus tachycardia. Abdomen is morbidly obese. Active bowel sounds, soft, nontender. Extremities without edema. Palpable pulses in upper extremities and lower extremities. Bilateral lower extremity superficial varicose veins. No focal motor neurologic deficits. Able to transfer from bed to wheelchair and wheelchair to bed. Skin is dry and intact. I re-examined the patient when he had a syncopal episode after going to the bathroom after he arrived on the medical surgical nurses floor. He was diaphoretic. I could palpate his pulses in upper and lower extremities. Lungs remain clear to auscultation. Heart tones with regular rhythm. He was able to catch his breath. We called the respiratory therapist for support at this juncture. Shortly thereafter as he was sitting in his bed he became ricketts, ashen colored, unresponsive. We put the head of his bed down and initiated CPR and called a code blue. Staff from the medical-surgical floor as well as the emergency department all worked together to administer CPR and ACLS. Initially we found him to be in a pulseless electrical activity pattern. In a very short period of time he was in an agonal rhythm. We continued with resuscitation efforts for 20 minutes. I continue to be in conversation with his was in a separate room. After 20 minutes of CPR and ACLS I informed his that that he had . Please see his note. Const: Vital Signs, click to edit/add: Vital Signs - 24 hr 06/04/24 13:12 06/04/24 14:40 06/04/24 14:40 Temperature 98.4 F Pulse Rate 119 H Pulse Rate [Pulse Oximeter] 97 Respiratory Rate 24 20 Blood Pressure Blood Pressure [Ri ght Upper Arm] 157/92 H Pulse Oximetry 91 91 Oxygen Delivery Me thod Room Air Room Air Oxygen Flow Rate 06/04/24 14:41 06/04/24 14:45 06/04/24 15:00 Temperature Pulse Rate 110 H 107 H Pulse Rate [Pulse Oximeter] 112 H Respiratory Rate 20 Blood Pressure Blood Pressure [Ri ght Upper Arm] Pulse Oximetry 89 90 93 Oxygen Delivery Me thod Room Air Oxygen Flow Rate 06/04/24 15:01 06/04/24 15:15 06/04/24 15:24 Temperature Pulse Rate 101 H Pulse Rate [Pulse Oximeter] 104 H 107 H Respiratory Rate 18 Blood Pressure Blood Pressure [Ri ght Upper Arm] Pulse Oximetry 93 99 91 Oxygen Delivery Me thod Room Air Room Air Oxygen Flow Rate 06/04/24 15:30 06/04/24 15:45 06/04/24 16:00 Temperature Pulse Rate 105 H 96 93 Pulse Rate [Pulse Oximeter] Respiratory Rate Blood Pressure Blood Pressure [Ri ght Upper Arm] Pulse Oximetry 91 92 91 Oxygen Delivery Me thod Oxygen Flow Rate 06/04/24 16:15 06/04/24 16:15 06/04/24 16:17 Temperature Pulse Rate 112 H 104 H Pulse Rate [Pulse Oximeter] Respiratory Rate Blood Pressure 137/88 Blood Pressure [Ri ght Upper Arm] Pulse Oximetry 97 99 Oxygen Delivery Me thod Non Rebreather Mas k Oxygen Flow Rate 12 06/04/24 16:30 06/04/24 16:32 06/04/24 16:32 Temperature Pulse Rate 117 H 117 H Pulse Rate [Pulse Oximeter] Respiratory Rate Blood Pressure 108/73 Blood Pressure [Ri ght Upper Arm] Pulse Oximetry 97 97 Oxygen Delivery Me thod OxyMask Oxygen Flow Rate 6 06/04/24 16:40 06/04/24 16:45 06/04/24 17:00 Temperature Pulse Rate 113 H 113 H Pulse Rate [Pulse Oximeter] Respiratory Rate Blood Pressure Blood Pressure [Ri ght Upper Arm] Pulse Oximetry 97 96 Oxygen Delivery Me thod OxyMask Oxygen Flow Rate 6 06/04/24 17:03 06/04/24 17:15 06/04/24 17:30 Temperature Pulse Rate 112 H 113 H 111 H Pulse Rate [Pulse Oximeter] Respiratory Rate Blood Pressure 124/90 H Blood Pressure [Ri ght Upper Arm] Pulse Oximetry 98 96 98 Oxygen Delivery Me thod Oxygen Flow Rate 06/04/24 17:32 06/04/24 17:45 06/04/24 18:00 Temperature Pulse Rate 115 H 115 H 115 H Pulse Rate [Pulse Oximeter] Respiratory Rate Blood Pressure 113/83 Blood Pressure [Ri ght Upper Arm] Pulse Oximetry 97 97 97 Oxygen Delivery Me thod Oxygen Flow Rate 06/04/24 18:03 06/04/24 18:15 Temperature Pulse Rate 105 H 108 H Pulse Rate [Pulse Oximeter] Respiratory Rate Blood Pressure 131/89 Blood Pressure [Ri ght Upper Arm] Pulse Oximetry 97 97 Oxygen Delivery Me thod Oxygen Flow Rate Hospitalist - H&P: Result Labs Labs: Short CBC 06/04/24 Range/Units 13:42 WBC 12.66 H (4.50-11.00) K/uL Hgb 14.9 (13.5-17.5) gm/dL Hct 44.5 (37.0-53.0) % Plt Count 163 (140-440) K/uL [facility] 06/04/24 13:42 Sodium 139 Potassium 4.0 Chloride 109 Carbon Dioxide 24 BUN 17 Creatinine 1.1 Glucose 142 H Calcium 9.7 Assessment and Plan Assessment and plan (1) Dyspnea: Status: Acute (2) Elevated troponin: Problem comment: Initial troponin I initially measured at 0.1. 3 hours later, troponin I measured at 0.12. Electrocardiogram demonstrated T-wave inversions inferiorly, anteriorly, laterally. No prior electrocardiograms to compare. Status: Acute (3) Family history of blood clots: Status: Acute (4) Morbid obesity: Problem comment: BMI 48 Status: Acute (5) Pulmonary nodule: Status: Acute (6) Cardiac arrest with pulseless electrical activity: Problem comment: - Please see note and note of resuscitation efforts - patient pronounced at 7:12 p.m. on 06/04/2024 - etiology of patient's cardiac arrest is not clear. Differential diagnosis includes: Complication of recent upper respiratory tract infection, complication of longstanding untreated obstructive sleep apnea, acute pulmonary embolism, and so forth. - materials engineer will be notified - family notified and staff working with family Status: Acute Total Time Spent Total Time Spent: 120 minutes
== END 2024-06-04 21:24 | disposition expired ==
LOC: ED 17:34 → MEDSURG 18:32
PROVIDERS: Family Medicine; Admitting Provider Internal Medicine; Emergency Provider Emergency Medicine Emergency Medical Services; Visit Provider Internal Medicine
DX: I46.9 Cardiac arrest, cause unspecified (principal); R06.00 Dyspnea, unspecified; R00.0 Tachycardia, unspecified; J06.9 Acute upper respiratory infection, unspecified; G47.33 Obstructive sleep apnea (adult) (pediatric); R79.89 Other specified abnormal findings of blood chemistry; D72.829 Elevated white blood cell count, unspecified; R91.1 Solitary pulmonary nodule; J20.9 Acute bronchitis, unspecified; E66.01 Morbid (severe) obesity due to excess calories; Z68.42 Body mass index [BMI] 45.0-49.9, adult; Z82.49 Family history of ischemic heart disease and other diseases of the circulatory system
CPT/HCPCS: 36415; 71275; 80048; 82803; 83735; 83880; 84484; 85025; 85610; 87631; 92950; 93005; 93971; 94640; 96366; 96374; 96376; 99284; 99285; G0378; J0171; J7512; Q9967